=== PATIENT | female | born 1965 | race Caucasian/White ===

== ENCOUNTER 2021-05-29 17:02 | Emergency (ER) | payer OTHER ==
[~2021-05-29 17:02] MED LIST: ALDACTONE100 MG PO; ALDACTONE25 MG PO; CARDIZEM60 MG PO; COREG 6.25MG6.25 MG PO; COZAAR100 MG PO; CRESTOR5 MG PO; FLORANEX TABLE1 EACH PO; HUMALOG SC; METFORMIN HCL500 MG PO; NEURONTIN300 MG PO; NORCO 5-325 TA1 EACH PO; SINGULAIR10 MG PO; TOPROL XL 50 MG50 MG PO; TOUJEO MAX300 UNIT/1 SC; VIBRAMYCIN100 MG PO
[2021-05-29 18:29] LABS: BASOPHIL 0.6 % (0-2); EOSINOPHIL 1.3 % (0-5); HCT 40.8 % (37.0-47.0); LYMPHOCYTE 11.2 % (15-48); MCH 29.1 pg (25.0-31.0); MCHC 31.9 g/dL (32.0-36.0); MCV 91.5 fL (78.0-100.0); MONOCYTE 9.9 % (0-12); MPV 9.6 fL (6.0-9.5); NEUTROPHIL 76.4 % (41-80); NRBC 0; PLT 153 K/uL (150-400); RBC 4.46 M/uL (4.20-5.40); RDW 13.7 % (11.5-14.0); WBC 8.3 K/uL (4.0-10.5)
[2021-05-29 18:35] LABS: CORONAVIRUS 2019 SARS-COV-2 NEGATIVE (NEGATIVE); INFLUENZA A NAA NEGATIVE (NEGATIVE)
[2021-05-29 19:44] LABS: LACTIC ACID 1.9 mmol/L (0.4-1.9)
[2021-05-29 19:54] LABS: ALBUMIN 3.7 g/dL (3.4-5.0); BILIRUBIN - TOTAL 1.6 mg/dL (0.2-1.0); BUN/CREAT RATIO (CALC) 15.2 RATIO; C-REACTIVE PROTEIN 7.5 mg/dL (<=0.90); CREATININE 0.66 mg/dL (0.51-0.95); GLOBULIN (CALCULATION) 3.9 g/dL; POTASSIUM 4.2 mmol/L (3.5-5.1); TOTAL PROTEIN 7.6 g/dL (6.4-8.2)
[2021-05-29] MEDS ORDERED: HYCODAN5 ML PO (21:32)
[2021-05-29] MEDS ORDERED: VENTOLIN HFA18 GM INH (21:32)
[2021-05-29] MEDS ORDERED: ONDANSETRON ODT4 MG PO (21:32)
[2021-05-29] MEDS ORDERED: VIBRAMYCIN100 MG PO (21:32)
== END 2021-05-29 21:46 | disposition home or self-care (01) ==
LOC: FER 17:02
PROVIDERS: Emergency Medicine
DX: J18.9 Pneumonia, unspecified organism (principal); I48.91 Unspecified atrial fibrillation; E11.9 Type 2 diabetes mellitus without complications; F17.210 Nicotine dependence, cigarettes, uncomplicated; Z20.822 Contact with and (suspected) exposure to COVID-19
CPT/HCPCS: 36415; 71046; 80053; 82728; 83605; 83615; 84145; 85025; 86140; 93005; J0696; U0002

== ENCOUNTER → 2021-10-13 | Day surgery (SDC) | payer OTHER ==
[~2021-10-13] VITALS: Ht 172.7 cm; Wt 149.7 kg
[~2021-10-13] MED LIST changes: +ALDACTONE50 MG PO; +COZAAR50 MG PO; +CRESTOR10 MG PO; +ELIQUIS5 MG PO; +HAIR, SKIN & N1 EACH PO; +HUMALOG100 UNIT/3 SC; +HYCODAN5 ML PO; +LACTINEX1 EACH PO; +LANTUS **100 UNITS/ SC; +LOPRESSOR50 MG PO; +LYRICA 50MG CAP50 MG PO; +METFORMIN HCL1000 M1 PO; +ONDANSETRON ODT4 MG PO; +OZEMPIC1 MG/0.71 SC; +VENTOLIN HFA18 GM INH; +VITAMIN D350 MC5 PO; +XANAX0.25 MG PO
[2021-10-13 08:42] LABS: HCT 30.7 % (37.0-47.0); HGB 8.8 g/dl (12.5-16.0); MCH 23.6 pg (25.0-31.0); MCHC 28.7 g/dL (32.0-36.0); MCV 82.3 fL (78.0-100.0); MPV 9.4 fL (6.0-9.5); RBC 3.73 M/uL (4.20-5.40); RDW 15.6 % (11.5-14.0); WBC 5.1 K/uL (4.0-10.5)
== END | disposition home or self-care (01) ==
LOC: FAS 08:09
PROVIDERS: Surgery
DX: D64.9 Anemia, unspecified (principal); K92.1 Melena; K64.4 Residual hemorrhoidal skin tags; I10 Essential (primary) hypertension; E11.9 Type 2 diabetes mellitus without complications; E78.00 Pure hypercholesterolemia, unspecified; I48.91 Unspecified atrial fibrillation; G47.30 Sleep apnea, unspecified; Z99.89 Dependence on other enabling machines and devices; Z88.1 Allergy status to other antibiotic agents; Z88.2 Allergy status to sulfonamides
CPT/HCPCS: 36415; J2250; J2704; J7120